=== PATIENT | male | born 1985 | race African-American/Black ===

== ENCOUNTER 2016-10-17 17:21 | Emergency (ER) | payer BC, OTHER ==
[2016-10-17 17:30] VITALS: BP 136/88; PULSE 104; TEMP 98; BMI 34.7
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
[2016-10-17] MEDS ORDERED: IBUPROFEN 600 MG TABLET (FP) PO ONE (18:35)
[2016-10-17] MEDS ORDERED: IBUPROFEN 400 MG TABLET (FP) PO ONE (18:35)
== END 2016-10-17 19:20 | disposition home or self-care (01) ==
LOC: JERFT 17:21
DX: S92.352A Displaced fracture of fifth metatarsal bone, left foot, initial encounter for closed fracture (principal); V23.4XXA Motorcycle driver injured in collision with car, pick-up truck or van in traffic accident, initial encounter; Y92.414 Local residential or business street as the place of occurrence of the external cause; Y93.89 Activity, other specified; Y99.8 Other external cause status
CPT/HCPCS: 73610-TC-LT; 73630-TC-LT; 99281-25